=== PATIENT | female | born 1980 | race Caucasian/White ===

== ENCOUNTER 2016-05-29 12:27 | Day surgery (SDC) | payer BC ==
[2016-05-24 16:06] VITALS: BMI 22.5
[~2016-05-29 12:27] MED LIST: LACTATED RINGERS 1,000 ML IV SCH
[2016-05-29] MEDS ORDERED: LIDOCAINE 1% 20 ML VIAL (10MG/ML) FOR IV START INTRADERMA ONE (12:50)
[2016-05-29 12:57] VITALS: RESP 16; TEMP 98
[2016-05-29] MEDS ORDERED: fentaNYL (PF) 50 MCG/ML 2 ML AMP ONE (13:23)
[2016-05-29] MEDS ORDERED: PROPOFOL 10 MG/ML 20 ML VIAL IV ONE (13:23)
[2016-05-29] MEDS ORDERED: MIDAZOLAM 2 MG/2 ML VIAL ONE (13:23)
--- NOTE | 2016-05-29 13:49 | P.PCN ---
Date of Procedure: 05/29/16 Procedure(s) Performed: Procedure: Esophagogastroduodenoscopy and biopsy. Preoperative diagnosis: Chronic reflux with with worsening symptoms lately despite therapy. Postoperative diagnosis: 1. Small sliding hiatal hernia with no obvious esophagitis or compared reflux disease. 2. Few small sticky white exudates raising the possibility of mari esophagitis. 3. Antral gastritis. 4. Multiple biopsies obtained from the duodenum antrum and esophagus. Preparation sedation: Were provided by anesthesia. Brief clinical history: The patient is a 35-year-old female with history of chronic reflux with recent worsening of her symptoms with episodes of burning and pressure in her throat for the last year. She feels excessive secretions and the need to constantly swallow and the feeling of something sticking in her throat. She has been on PPI daily for the last year. Before that she was taking it as needed. Seems like these episodes are happening more frequently. She also has been having some issues with bloating and gas. The patient has history of scleroderma/CREST. This evaluation is to assess for esophagitis, rule out other etiology and guide therapy. Procedure: With the patient on her left lateral decubitus position and after informed consent and adequate sedation, I passed the Olympus-GIF 160 video upper endoscope through the cricopharyngeus down the esophagus. GE junction was 38 cm from the incisors and there was a small sliding hiatal hernia. The esophagus did not show any obvious erosions, ulcers, strictures or Espinoza's esophagus. There were a few, white, small and sticky exudates noted in the esophagus raising the possibility of mari esophagitis. Biopsies were obtained. The endoscope was then advanced into the stomach which was insufflated with air and inspected in detail including the retroflex view in the cardia. There was some mottling and erythema in the antrum consistent with mild gastritis but no ulcers or erosions. Pyloric channel, duodenal bulb, post bulbar area and descending duodenum showed minimal erythema. I obtained biopsies from the duodenum, antrum and esophagus then the endoscope was withdrawn. The patient tolerated the procedure well. Plan: The patient was reassured. Will await pathology results. I will see her in the office in follow-up and make additional recommendations based on her course and biopsy results.
[2016-05-29 14:12] VITALS: BP 117/65; PULSE 78
== END 2016-05-29 14:33 | disposition home or self-care (01) ==
LOC: ORWHC2ENDO 12:27
DX: K21.0 Gastro-esophageal reflux disease with esophagitis (principal); K29.50 Unspecified chronic gastritis without bleeding; K44.9 Diaphragmatic hernia without obstruction or gangrene; M34.9 Systemic sclerosis, unspecified; F32.9 Major depressive disorder, single episode, unspecified; M06.9 Rheumatoid arthritis, unspecified; M79.7 Fibromyalgia; F17.200 Nicotine dependence, unspecified, uncomplicated; Z79.52 Long term (current) use of systemic steroids; Z79.899 Other long term (current) drug therapy
CPT/HCPCS: 81025; 88305; 88342; 43239; J2250; J3010; J2704